=== PATIENT | male | born 1940 | race Caucasian/White ===

== ENCOUNTER → 2017-01-11 | Outpatient (CLI) | payer MEDICARE, OTHER ==
--- NOTE | 2017-01-11 17:28 | RAD ---
Procedure: XR PELVIS 1-2 VIEWS Exam Date: 01/11/2017 Ordering Provider: ESCOBAR RODRIGUEZ Clinical Indication: PELVIC PAIN Comparison: 02/16/2012 CT pelvis FINDINGS: Penile implant and prostate seeds. There is no fracture or dislocation. Articular surface of each hip is preserved. The sacroiliac joints are intact bilaterally. The pubic symphysis is normal. There are no lytic or sclerotic lesions. There are no suspicious calcifications. Pelvic phleboliths. Impression: 1. No acute findings. Electronically signed by: Theron Mcneil MD 01/11/2017 5:27 PM CDT
--- NOTE | 2017-01-11 18:39 | RAD ---
EXAM DESCRIPTION: Knee,Right Complete CLINICAL HISTORY: 76 years,Male,KNEE PAIN COMPARISON: None FINDINGS: The right knee demonstrates no fractures, dislocations, or other acute bony abnormalities. The joint spaces severe loss on the lateral compartments some widening lateral compartment and mild loss patellofemoral compartment with osteophyte changes in all three compartments worse moderate on the medial.. The soft tissues demonstrates scattered calcified arterial disease. No joint effusion. IMPRESSION: Tricompartmental arthritic changes right knee worse and severe in the medial compartment Electronically signed by: Maicol Churchill MD 01/11/2017 6:38 PM CDT
== END | disposition home or self-care (01) ==
LOC: RAD 08:44
PROVIDERS: ATTEND Orthopaedic Surgery
DX: M25.561 Pain in right knee (principal); M25.551 Pain in right hip

== ENCOUNTER → 2017-02-19 | Outpatient (CLI) | payer OTHER | END | disposition home or self-care (01) | LOC: RESP 08:36 | PROVIDERS: ATTEND Orthopaedic Surgery | DX: Z01.818 Encounter for other preprocedural examination (principal) ==

== ENCOUNTER 2017-03-02 05:57 | Inpatient (IN) | payer OTHER ==
--- NOTE | 2017-02-28 10:25 | HP ---
CHIEF COMPLAINT: Right knee pain. HISTORY OF PRESENT ILLNESS: Khris is a 76-year-old male with a history of pain in the right knee. He has had multiple interventions conservatively, however, has failed to gain relief. Because of his ongoing pain, he has requested operative intervention. He has had contralateral total knee replacement. After discussing the risks, benefits and alternatives to operative therapy, the patient has given informed consent. PAST SURGICAL HISTORY: 1. Left knee arthroscopy. 2. Left total knee replacement. MEDICATIONS: 1. Symbicort. ALLERGIES: NO KNOWN DRUG ALLERGIES. CODE STATUS: Full code. IMMUNIZATIONS: Up to date. SOCIAL HISTORY: The patient does not drink or use any illicit drugs. He does smoke. FAMILY HISTORY: None pertinent to today's complaint. REVIEW OF SYSTEMS: Negative except as indicated in the History of Present Illness. PHYSICAL EXAMINATION: VITAL SIGNS: Blood pressure 156/84. Pulse 94. Height 6'. Weight 185. MENTAL STATUS: The patient is awake, alert, and is able to give a good history and participate in the physical. The patient is oriented to person, place and time. SKIN: Normal tone and turgor. HEENT: Normocephalic, atraumatic. Pupils equal, round and reactive. Mucosal membranes are moist. NECK: Normal range of motion. No thyromegaly, no lymphadenopathy. CHEST: Normal respiratory excursion. CARDIAC: Regular rate and rhythm. No murmurs, rubs or gallops. MUSCULOSKELETAL: The bilateral upper extremities show full active range of motion. He has no pain with range of motion. He has no deformity and no crepitus. The left knee shows full extension with flexion to about 120 degrees. He has a well-healed wound anteriorly. He has no pain with range of motion. The hip shows full range of motion without any pain. The right side shows full range of motion of the hip. However, he has crepitus and pain throughout his range of motion in the knee. He has pain diffusely about the knee, but most prominent medially. He has a mild to moderate effusion. Sensation is intact. He does have full extension and flexion is to about 115 degrees. IMAGING: X-rays show severe arthritis. ASSESSMENT: 1. Arthritis. PLAN: The plan at this point is for total knee arthroplasty. We have discussed the risks, benefits, and alternatives to that and the patient has given informed consent. #[id number] [facility]
[~2017-03-02 05:57] MED LIST: LACTATED RINGERS 1,000 ML ONE; SODIUM CHL 0.9% 100ML MINI-BAG 100 ML IVPB ONE; SODIUM CHLORIDE 0.9% 100ML 100 ML IVPB ONE; SODIUM CHLORIDE 0.9% 250ML 250 ML ONE; TRANEXAMIC ACID 1,000 MG/10 ML VIAL ONE; VANCOMYCIN HCL INJ 1,000 MG VIAL IVPB ONE; ceFAZolin SODIUM 1 GM VIAL ONE
[2017-03-02] MEDS ORDERED: ACETAMINOPHEN IV 1000MG 100 ML ONE (06:14)
[2017-03-02] MEDS ORDERED: ELECTROLYTE-A 1,000 ML IVS ONE (06:14)
[2017-03-02] MEDS ORDERED: MIDAZOLAM INJ 5 MG/5 ML VIAL ONE (06:14)
[2017-03-02] MEDS ORDERED: MORPHINE SULF *EPIDURAL* 1 MG/ML VIAL ONE (06:14)
[2017-03-02] MEDS ORDERED: fentaNYL CITRATE INJ 50 MCG/ML AMP ONE (06:15)
[2017-03-02] MEDS ORDERED: ceFAZolin SODIUM 1 GM VIAL ONE ×2 (06:25→16:11)
[2017-03-02] MEDS ORDERED: raNITIdine HCL INJ 25 MG/ML VIAL ONE (07:00)
[2017-03-02] MEDS ORDERED: PROPOFOL 200 MG/20 ML VIAL IV ONE (07:00)
[2017-03-02] MEDS ORDERED: DEXAMETHASONE INJ 10 MG/ML VIAL ONE (07:00)
[2017-03-02] MEDS ORDERED: LIDOCAINE 1% 10 ML VIAL INJ ONE (07:00)
[2017-03-02] MEDS ORDERED: METOCLOPRAMIDE HCL INJ 10 MG/2 ML VIAL ONE (07:00)
[2017-03-02] MEDS ORDERED: ePHEDrine SULF 50 MG/ML ONE (07:00)
[2017-03-02] MEDS: ceFAZolin SODIUM 1 GM VIAL ONE ×2 (07:47→08:42)
[2017-03-02] MEDS: VANCOMYCIN HCL INJ 1,000 MG VIAL IVPB ONE ×2 (07:47→08:42)
[2017-03-02] MEDS: BUPIVACAINE 0.25% W/EPI 50 ML VIAL INJ ONE ×2 (07:48→09:16)
[2017-03-02] MEDS ORDERED: HYDROcodone 5MG/APAP 325MG 1 EA TAB PO PRN (09:27)
[2017-03-02] MEDS ORDERED: TEMAZEPAM 15 MG CAP PO PRN (09:27)
[2017-03-02] MEDS ORDERED: PROMETHAZINE HCL INJ 25 MG in SODIUM CHLORIDE 0.9% 50ML 50 ML IVPB PRN (09:27)
[2017-03-02] MEDS ORDERED: ZOLPIDEM TARTRATE 5 MG TAB PO PRN (09:27)
[2017-03-02] MEDS ORDERED: MORPHINE SULFATE INJ 10 MG/ML VIAL IV PRN (09:27)
[2017-03-02] MEDS ORDERED: ALUMINUM & MAGNESIUM HYDROXIDE 30 ML UD PO PRN (09:27)
[2017-03-02] MEDS ORDERED: ACETAMINOPHEN 500 MG TAB PO PRN (09:27)
[2017-03-02] MEDS ORDERED: MAGNESIUM HYDROXIDE 30 ML UD PO PRN (09:27)
[2017-03-02] MEDS ORDERED: SODIUM CHLORIDE 0.9% (FLUSH) 10 ML SYG IV PRN (09:27)
[2017-03-02] MEDS ORDERED: TRANEXAMIC ACID INJ 1,000 MG in SODIUM CHLORIDE 0.9% 100ML 100 ML IVPB ONE (09:27)
[2017-03-02] MEDS ORDERED: DEX 5% W/NACL 0.45% 1000ML 1,000 ML IVS PRN (09:27)
[2017-03-02] MEDS ORDERED: ACETAMINOPHEN 325 MG TAB PO PRN (09:27)
[2017-03-02] MEDS ORDERED: CYCLOBENZAPRINE HCL 10 MG TAB PO PRN (09:27)
[2017-03-02] MEDS ORDERED: MORPHINE SULFATE INJ 10 MG/ML VIAL IM PRN (09:27)
[2017-03-02] MEDS ORDERED: HYDROcodone 10MG/APAP 325MG 1 EA TAB PO PRN (09:27)
[2017-03-02] MEDS ORDERED: PROMETHAZINE HCL INJ 12.5 MG in SODIUM CHLORIDE 0.9% 50ML 50 ML IVPB PRN (09:27)
[2017-03-02] MEDS ORDERED: BENZOCAINE-MENTH LOZ (CEPACOL) 1 EA LOZ MT PRN (09:27)
[2017-03-02] MEDS ORDERED: BISACODYL SUPPOSITORY 10 MG PR PRN (09:27)
[2017-03-02] MEDS ORDERED: NALOXONE HCL INJ 0.4 MG/ML VIAL IV PRN (09:27)
[2017-03-02] MEDS ORDERED: MORPHINE PCA 1 MG/ML 100ML 1 BAG in PREMIX BAG 1 BAG IVPB SCH (09:30)
[2017-03-02] MEDS ORDERED: IV SET AND CAP CHANGE INJ INJ SCH (09:30)
[2017-03-02] MEDS ORDERED: MORPHINE PCA 1 MG/ML 100 ML BAG IVPB ONE (09:35)
[2017-03-02] MEDS ORDERED: IPRATROPIUM/ALBUTEROL 3 ML VIAL NEB ONE (10:02)
--- NOTE | 2017-03-02 11:17 | RAD ---
EXAM DESCRIPTION: Knee,Right 2 or More Views CLINICAL HISTORY: 76 years, Male, TKA COMPARISON: January 11, 2017 FINDINGS: Interval total knee arthroplasty. Alignment near-anatomic. Soft tissue changes consistent recent procedure. Arterial calcifications. IMPRESSION: Near anatomic alignment post total knee arthroplasty Electronically signed by: Wayne Salmon MD 03/02/2017 11:16 AM CDT
[2017-03-02] MEDS: ONDANSETRON INJ 4 MG/2 ML VIAL IV PRN ×2 (15:46→20:07)
[2017-03-02] MEDS ORDERED: SODIUM CHLORIDE 0.9% 100ML 100 ML IVPB ONE (16:11)
[2017-03-02] MEDS: ceFAZolin SODIUM 2 GM in SODIUM CHLORIDE 0.9% 100ML 100 ML IVPB SCH (16:30)
[2017-03-02] MEDS ORDERED: VANCOMYCIN HCL INJ 1,000 MG VIAL IVPB ONE (17:51)
[2017-03-02] MEDS ORDERED: SODIUM CHLORIDE 0.9% 250ML 250 ML ONE (17:51)
[2017-03-02] MEDS: VANCOMYCIN HCL INJ 1,000 MG in SODIUM CHLORIDE 0.9% 250ML 250 ML IVPB SCH (18:09)
[2017-03-02] MEDS ORDERED: BIMATOPROST 0.01% BOTH_EYES SCH (19:30)
[2017-03-02] MEDS ORDERED: DOCUSATE CALCIUM 240 MG CAP PO SCH (21:00)
[2017-03-02] MEDS ORDERED: DORZOLAMIDE 2% OPHTH SOL 1 DROP BOTH_EYES SCH (21:00)
[2017-03-02] MEDS: BRIMONIDINE 0.15% BOTH_EYES SCH (21:00)
[2017-03-02] MEDS: ENOXAPARIN SODIUM 30 MG/0.3 ML SYG SUBCU SCH (21:25)
[2017-03-02] MEDS: BUDESONIDE/FORMOTEROL 160/4.5 60 PUFF/6 GM INH INH SCH (21:49)
[2017-03-02] MEDS ORDERED: ALBUTEROL SULFATE 2.5 MG/3 ML VIAL NEB PRN (21:51)
[2017-03-03] MEDS ORDERED: SODIUM CHLORIDE 0.9% 100ML 100 ML IVPB ONE ×2 (00:20→08:17)
[2017-03-03] MEDS ORDERED: ceFAZolin SODIUM 1 GM VIAL ONE ×2 (00:20→08:17)
[2017-03-03] MEDS: ceFAZolin SODIUM 2 GM in SODIUM CHLORIDE 0.9% 100ML 100 ML IVPB SCH ×2 (00:40→08:39)
[2017-03-03] MEDS ORDERED: SODIUM CHLORIDE 0.9% 250ML 250 ML ONE (03:26)
[2017-03-03] MEDS ORDERED: VANCOMYCIN HCL INJ 1,000 MG VIAL IVPB ONE (03:26)
[2017-03-03] MEDS: VANCOMYCIN HCL INJ 1,000 MG in SODIUM CHLORIDE 0.9% 250ML 250 ML IVPB SCH (05:30)
[2017-03-03] MEDS ORDERED: ALBUTEROL SULFATE 2.5 MG/3 ML VIAL NEB SCH (08:00)
[2017-03-03] MEDS: BUDESONIDE/FORMOTEROL 160/4.5 60 PUFF/6 GM INH INH SCH (08:24)
[2017-03-03] MEDS: ENOXAPARIN SODIUM 30 MG/0.3 ML SYG SUBCU SCH (08:44)
[2017-03-03] MEDS: BRIMONIDINE 0.15% BOTH_EYES SCH (08:45)
[2017-03-03] MEDS ORDERED: MAGNESIUM OXIDE 400 MG TAB PO SCH (09:00)
[2017-03-03] MEDS ORDERED: DORZOLAMIDE 2% OPHTH SOL 1 DROP BOTH_EYES SCH (09:00)
[2017-03-03] MEDS ORDERED: amLODIPine BESYLATE 5 MG TAB PO SCH (09:00)
[2017-03-03] MEDS ORDERED: BIMATOPROST 0.01% RIGHT_EYE SCH (09:00)
--- NOTE | 2017-03-03 09:36 | CONS ---
SUPERVISING PHYSICIAN: Johnathan Yan MD DATE: 03/02/17 CHIEF COMPLAINT: Right knee pain. HISTORY OF PRESENT ILLNESS: This is a 76 year-old male patient who has a history of bilateral knee pain. He had his left knee replaced last year and after failing to gain relief with conservative measures and due to ongoing pain he has requested Dr. Burgos, orthopedic surgeon to replace his right knee. Intraoperatively, he did well without any complications. I am seeing him in the postoperative phase after his right total knee replacement. PAST MEDICAL HISTORY: 1. Chronic obstructive pulmonary disease. 2. Hypertension. 3. Gastroesophageal reflux disease. 4. Glaucoma. PAST SURGICAL HISTORY: 1. Left knee arthroscopy. 2. Left total knee replacement. OUTPATIENT MEDICATIONS: 1. Aspirin. 2. Hydrocodone. 3. Pantoprazole. 4. Amlodipine. 5. Lumigan ophthalmic solution. 6. Alphagan T ophthalmic solution. 7. Symbicort. 8. Trusopt ophthalmic drops CODE STATUS: FULL CODE. ALLERGIES: NO KNOWN DRUG ALLERGIES. FAMILY HISTORY: Noncontributory. SOCIAL HISTORY: The patient smokes one-half pack of cigarettes daily. He denies any ETOH or illicit drug use. REVIEW OF SYSTEMS: Negative except as per history of present illness plus he is slightly nauseated postoperatively. PHYSICAL EXAMINATION: VITAL SIGNS: He is afebrile. Heart rate 83, blood pressure 120/66, respiratory rate 14. 02 saturation 91%. GENERAL: This is a 76 year-old male patient who is lying in his hospital bed. He is in no acute distress. HEENT: Normocephalic and atraumatic. Pupils are equal and reactive. Oropharynx is clear. NECK: Supple without mass. There is no jugular venous distention. CHEST: Clear to auscultation bilaterally. Chest has equal rise and fall of the chest with inspiration and expiration. HEART: Regular rate and rhythm. ABDOMEN: Soft, non-tender, nondistended. Bowel sounds are positive. EXTREMITIES: Bilateral pedal pulses are palpable at +2. He has a dressing to his right knee that is dry and intact. He also has an Iceman in place. NEUROLOGIC: He is awake, alert, and oriented x3. LABORATORY: There are no labs to report at this time. The knee x-ray per radiology interpretation shows near anatomic alignment post total knee arthroplasty. All other labs and films have been reviewed via the EMR. IMPRESSION: 1. Osteoarthritis of the right knee status post right total knee arthroplasty, postoperative day #0. 2. Chronic obstructive pulmonary disease. 3. Hypertension. 4. Gastroesophageal reflux disease. 5. Glaucoma. PLAN: We will restart patient's home medications. I will also start breathing treatments. He will use his own glaucoma eyedrops. He will start physical therapy tomorrow for strengthening and conditioning. I have encouraged good pulmonary hygiene. I have also instructed him to call for any nausea problems as he has p.r.n. medications available. We will continue to monitor patient closely and followup as needed. Dr. Yan is the collaborating physician available for consultation. #[id number] [facility]ITAL[facility]fredo
[2017-03-03 15:29] VITALS: BP 134/69; TEMP 98.6; O2SAT 95
[2017-03-04] MEDS ORDERED: SODIUM CHLORIDE 0.9% (FLUSH) 10 ML SYG IV SCH (09:00)
--- NOTE | 2017-03-04 13:51 | OP ---
PREOPERATIVE DIAGNOSIS: 1. Osteoarthritis of the right knee. POSTOPERATIVE DIAGNOSIS: 2. Osteoarthritis of the right knee. PROCEDURE: Total right knee arthroplasty. SURGEON: Jairo Burgos MD MANAGER OF FINANCIAL: Wilfrido Ahumada CST, SA-C ANESTHESIA: General. COMPLICATIONS: None. FINDINGS: Severe arthritis of the knee. INDICATIONS FOR PROCEDURE: Mr. Gannon has a long history of severe knee getting progressively worse and has been refractory to conservative measures. Because of the ongoing knee pain and the refractory nature of it, he has requested operative intervention. After discussing the risks, benefits, and alternatives to operative intervention , he was given informed consent for that. PROCEDURE: The patient was brought to the Operating Room and placed in supine position. General anesthesia was induced and the patient's leg was sterilely prepped and draped. Following prepping and draping, the distal femur was exposed and using an intramedullary guide, the distal femoral cut was made. The appropriate sized cutting block was measured, pinned into place, and the anterior, posterior , and chamfer cuts were made. The ACL was transected and the tibia was subluxed. Both the medial and lateral menisci were removed. An intramedullary guide was used to make the proximal tibial cut. The appropriate sized base plate was placed and a trial polyethylene was placed. The trial femur was placed, the knee was reduced, and the knee was taken through a range of motion. The knee was stable in anterior, posterior, varus and valgus stress. The patella tracked anatomically without evidence of subluxation or dislocation. After trialing, the trial components were removed and the bony surfaces were thoroughly irrigated with saline. Following irrigation, the surfaces were dried and the final components were cemented into place. The excess cement was removed and the remaining cement was allowed to cure. The knee was again taken through a range of motion to confirm stability. The wound was then irrigated with saline and closure was performed using PDS to approximate the arthrotomy followed by closure of the subcutaneous tissues with a combination of running and interrupted Monocryl sutures. Sterile dressing was placed. The patient was awoken from anesthesia and taken to Recovery. POSTOPERATIVE INSTRUCTIONS: The patient will be weightbearing as tolerated on postoperative day #1. COMPONENTS: .[employer] Triathlon knee, size 4 femur, size 4 tibia and 9 mm insert. #[id number] [facility]
[2017-03-05] MEDS ORDERED: BISACODYL SUPPOSITORY 10 MG PR ONE (21:00)
[2017-03-05] MEDS ORDERED: MAGNESIUM HYDROXIDE 30 ML UD PO ONE (21:00)
--- NOTE | 2017-03-10 17:47 | DS ---
SUPERVISING PHYSICIAN: Johnathan Yan MD DISCHARGE DIAGNOSIS: 1. Osteoarthritis of the right knee status post right total knee arthroplasty, postoperative day #1, having failed to respond to outpatient treatment plans requiring surgical intervention for symptomatology and control. 2. Chronic obstructive pulmonary disease, stable. 3. Hypertension, stable. 4. Gastroesophageal reflux disease. 5. History of glaucoma. HISTORY OF PRESENT ILLNESS: Mr. Gannon is a 76 year-old male patient with a history of bilateral knee pain. He had his left knee replaced last year and after failing to get any relief with conservative measures and having ongoing pain, he requested Dr. Burgos, orthopedic surgeon, replace his right knee. Intraoperatively he did well without any complications and he was seen immediate in the postoperative phase and followed the entire admission. He was admitted to the medical/surgical floor in stable condition. LABORATORY: Postoperative hemoglobin and hematocrit were 12.1 and 38.1. He had a BNP on 02/28/17 showing to be within normal limits. RADIOLOGY: No additional radiographic studies were submitted. HOSPITAL COURSE: The patient was admitted on 03/02 as noted in the history of present illness for elective total right knee arthroplasty. The patient did well surgically and was seen in the postoperative phase and followed medically through his rehab phase. On the morning it was felt he was clinically stable enough and had done well enough that he could be discharged to followup with Dr. Burgos the following Sunday and to start rehabilitation in the outpatient setting. PLAN: Mr. Gannon was discharged on 03/03/17 with instructions to have close clinical followup with Dr. Burgos on 03/05/17 at 7:45. [facility] to talk to [facility] and schedule outpatient rehabilitation physical therapy. He was to resume his home medications as directed, take new prescriptions as instructed. He was to return to the hospital if his condition failed to improve or he had any concerning symptoms. Discharge prescriptions include: 1. Flexeril 10 mg every 8 hours as needed, #10. 2. Xarelto 10 mg every day, #11. 3. Tramadol 50 mg every 8 hours #[address] Burgos prescription. DISCHARGE DIET: Regular diet as tolerated. ACTIVITIES: As per physical therapy. No weight bearing, to walk with a walker. Wound care as per Dr. burgos's instructions. CONDITION ON DISCHARGE: Stable and improved. #[id number] [facility]
== END 2017-03-03 16:20 | disposition home or self-care (01) | DRG 470 ==
LOC: AMB 05:57 → MS 10:30
PROVIDERS: ADMIT Orthopaedic Surgery; ATTEND Nurse Practitioner Family
PROC: 0SRC0J9 Replacement of Right Knee Joint with Synthetic Substitute, Cemented, Open Approach (ICD-10-PCS; principal; 2017-03-02 07:09)
DX: M17.11 Unilateral primary osteoarthritis, right knee (principal); I10 Essential (primary) hypertension; K21.9 Gastro-esophageal reflux disease without esophagitis; H40.9 Unspecified glaucoma; J44.9 Chronic obstructive pulmonary disease, unspecified; F17.210 Nicotine dependence, cigarettes, uncomplicated; Z96.652 Presence of left artificial knee joint; Z79.82 Long term (current) use of aspirin; Z79.51 Long term (current) use of inhaled steroids; Z79.899 Other long term (current) drug therapy

== ENCOUNTER → 2017-12-11 | Outpatient (CLI) | payer MEDICARE, OTHER | LOC: LAB.O 09:22 | PROVIDERS: ATTEND Nurse Practitioner Family | DX: I10 Essential (primary) hypertension (principal); Z13.220 Encounter for screening for lipoid disorders ==

== ENCOUNTER → 2017-12-12 | Outpatient (CLI) | payer OTHER ==
--- NOTE | 2017-12-12 11:32 | RAD ---
EXAM DESCRIPTION: Chest,2 Views CLINICAL HISTORY: COPD COMPARISON: Chest radiograph dated November 16, 2011 Findings/impression: Frontal and lateral views of the chest. Cardiac silhouette and pulmonary vascularity are within normal limits. Lung volumes are hyperinflated, compatible with COPD. Minimal linear opacities in the bilateral lung bases most likely represent subsegmental atelectasis. Otherwise, lungs are clear without focal consolidative infiltrates. No pleural effusion. No pneumothorax. Degenerative changes of the thoracic spine. Electronically signed by: Maicol Alcaraz MD 12/12/2017 11:31 AM CDT
== END ==
LOC: RAD 10:11
PROVIDERS: ATTEND Nurse Practitioner Family
DX: J44.9 Chronic obstructive pulmonary disease, unspecified (principal); I10 Essential (primary) hypertension

== ENCOUNTER → 2018-05-06 | Outpatient (CLI) | payer OTHER ==
--- NOTE | 2018-05-06 09:37 | RAD ---
EXAM DESCRIPTION: Chest,2 Views CLINICAL HISTORY: CHRONIC OBSTRUCTIVE PULMONARY DISEASE COMPARISON: Previous study December 12, 2017 TECHNIQUE: PA/lateral FINDINGS: There is no acute appearing cardiac or pulmonary abnormality. Heart size is normal with normal pulmonary vascularity. No pleural effusion or pneumothorax. Patchy discoid atelectasis in the lung bases appear similar to previous study. Lungs are otherwise clear with no consolidating infiltrate. Lateral view shows intact sternum and spurring in the T-spine. IMPRESSION: No acute process is identified in the chest. Electronically signed by: Griffin Hahn MD 05/06/2018 9:35 AM CDT
== END ==
LOC: YCFC.O 08:44
PROVIDERS: ATTEND Nurse Practitioner Family
DX: I10 Essential (primary) hypertension (principal); J44.9 Chronic obstructive pulmonary disease, unspecified; Z01.818 Encounter for other preprocedural examination

== ENCOUNTER → 2018-10-17 | Outpatient (CLI) | payer OTHER ==
--- NOTE | 2018-10-17 10:24 | RAD ---
EXAM DESCRIPTION: Chest,2 Views CLINICAL HISTORY: PRE OP FOR EYE SX COMPARISON: May 06, 2018 TECHNIQUE: PA/lateral FINDINGS: The lungs are well expanded and clear. No infiltrates or effusions or masses are noted. The heart is normal in size and shape with no evidence of vascular congestion. The mel and mediastinum demonstrate normal contours. The bony spine and chest wall is normal for age in appearance. IMPRESSION: Normal chest, two views Electronically signed by: Michael Rosario MD 10/17/2018 10:22 AM [facility]
== END ==
LOC: LAB.O 09:02
PROVIDERS: ATTEND Nurse Practitioner Family
DX: Z01.818 Encounter for other preprocedural examination (principal)

== ENCOUNTER → 2019-01-16 | Outpatient (CLI) | payer OTHER ==
--- NOTE | 2019-01-17 07:31 | RAD ---
EXAM: Hip,Left 2 Views CLINICAL HISTORY: HIP PAIN COMPARISON STUDY: None. TECHNICAL: AP and lateral images. FINDINGS: There is a slight irregularity along the femoral neck superolaterally. There are mild osteophytic changes along the superolateral acetabulum. There is no fracture dislocation. There is no joint space loss. CONCLUSIONS: 1. 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 2. NO ACUTE FRACTURE. Electronically signed by: Adrian Chavez MD 01/17/2019 7:29 AM CDT
== END ==
LOC: RAD 08:45
PROVIDERS: ATTEND Nurse Practitioner Family
DX: M25.552 Pain in left hip (principal)

== ENCOUNTER → 2019-03-21 | Outpatient (CLI) | payer OTHER ==
--- NOTE | 2019-03-23 18:06 | CT ---
EXAM DESCRIPTION: Chest w/o Contrast : Computed Tomography. CLINICAL HISTORY: 78 years Male Hypoxemia COMPARISON: 2 view chest x-ray 10/17/2018. CT scan abdomen and pelvis 05/29/2011. TECHNIQUE: Spiral-axial scans at 5 mm intervals through the lungs and thorax without IV contrast. 2.5 x 5 mm lung algorithm axial reconstructions. Coronal and sagittal 2.0 Mm reconstructions. No adverse reactions. Total Exam DLP: 446.87 mGy-cm. This exam was performed according to our departmental dose-optimization program which includes automated exposure control, adjustment of the mA and/or kV according to patient size and/or use of iterative reconstruction technique; to reduce radiation dose to as low as reasonably achievable (ALARA). Nodule measurements under 10 mm are given as mean value of 3 axes diameters. FINDINGS: Lungs and large airways: Tree-in-bud and ground-glass densities are noted abutting the medial pleura, posterior to the inferior hilum in the superior segment right lower lobe. 5 mm solid nodule in the junction of the superior segment and medial basilar segments of the left lower lobe on axial series 4, image 81 and 82. Its shape is suggestive of a perifissural nodule. Solid nodule in the lateral recess of the left lower lobe abutting the medial pleura and extension to the lateral pleural is stable in size compared to prior CT scan dated focal infiltrate or atelectasis in the posterior recess and base of the left lower lobe is new since the prior study. Nodular-like, solid component of this process on image 4/107 has a mean diameter of 8 mm. A mixture of groundglass and tree-in-bud densities diffusely in the medial base of the right lower lobe new since the prior study. Largest groundglass component is unremarkable by 10 mm on image 4/106. Dilated airspaces in the upper lung prasad more prevalent in mid and inferior lung prasad.. Pleural spaces: Bilateral occasional focal thickening but no effusion or pneumothorax. Mediastinum and Kristi: Evaluation limited due to lack of IV contrast. No enlarged nodes or soft tissue masses. Great vessels and Heart: Evaluation limited due to lack of IV contrast.. Atherosclerotic calcifications in the coronary arteries, aortic arch and descending thoracic aorta, and some of the included brachiocephalic vessels. Soft tissues of neck base, axillae, and chest wall: Evaluation limited due to lack of IV contrast... Normal size nodes. No soft tissue masses or edema. Upper abdomen: Included peritoneal space bases negative. Normal density and size of the spleen and adrenal glands. Included abdominal organs grossly normal. Moderate atherosclerotic changes in the distal thoracic aorta and proximal abdominal aorta and major branch vessels. Osseous structures: Spondylosis at multiple levels. Arthrosis bilateral sternoclavicular joints and soft tissue swelling. Sclerotic lesion in the inferior T5 endplate. No lytic lesions. Mild arthrosis in the bilateral glenohumeral joints. Also the first costovertebral joints. IMPRESSION: 1. Bibasilar densities with groundglass and solid components in the posterior recesses of the lower lobes are not present on the prior CT scans through the lung bases on the CT abdomen scan. Nodule in the lateral recess of the left lower lobe abutting the medial pleura stable. A 5 mm solid nodule which may be associated with a intersegmental fissure is visible at the junction of the superior segment of the left lower lobe and medial basilar segment. There is also a mixture of groundglass densities and tree-in-bud densities abutting the medial pleura of the superior segment of the right lower lobe. A tree-in-bud pattern can be seen in chronic bilateral pneumonias and also mycobacterial infection. [employer] Best Practice recommendations utilizing 2017 Fleischner Society guidelines for multiple pulmonary nodules recommends 3-[address] follow-up. Please see below. 2. No pleural effusion or pneumothorax. No soft tissue chest wall masses and no enlarged nodes are soft tissue masses in the mediastinum or hilum. 3. Small round sclerotic lesion inferior T5 vertebral body may be related to spondylosis. Recommend correlation with thoracic radiographs. Arthrosis also elsewhere in the thorax. Electronically signed by: Wilfrido Hebert MD 03/23/2019 6:04 PM CDT
== END ==
LOC: RESP 12:46
PROVIDERS: ATTEND Nurse Practitioner Family
DX: R91.8 Other nonspecific abnormal finding of lung field (principal); R91.1 Solitary pulmonary nodule; M51.84 Other intervertebral disc disorders, thoracic region; M47.894 Other spondylosis, thoracic region; R29.6 Repeated falls

== ENCOUNTER → 2019-04-10 | Outpatient (CLI) | payer OTHER ==
--- NOTE | 2019-04-10 11:14 | RAD ---
EXAM DESCRIPTION: Foot,Left 3 Views CLINICAL HISTORY: M79.672 COMPARISON: None. TECHNIQUE: 3 views left FINDINGS: Diffuse osteopenia is observed. Plantar and Achilles enthesophytes are observed. No fracture is detected. IMPRESSION: Degenerative changes and osteopenia are observed. No fracturing is detected. Electronically signed by: Maicol Noyola MD 04/10/2019 11:11 AM CDT
== END ==
LOC: RAD 09:44
PROVIDERS: ATTEND Orthopaedic Surgery
DX: M19.072 Primary osteoarthritis, left ankle and foot (principal)

== ENCOUNTER 2019-06-03 02:32 | Emergency (ER) | payer OTHER ==
[2019-06-03] MEDS ORDERED: ONDANSETRON INJ 4 MG/2 ML VIAL IV ONE (02:46)
[2019-06-03] MEDS ORDERED: SODIUM CHLORIDE 0.9% (FLUSH) 10 ML SYG IV PRN (02:46)
[2019-06-03] MEDS ORDERED: ASPIRIN TABLET 325 MG TAB PO ONE (02:46)
--- NOTE | 2019-06-03 02:55 | ED.PDOC ---
History of Present Illness - General Source: patient Additional Information: patient is a 79-year-old gentleman who presents to the ED with chest pain and dizziness onset this evening. Patient indicates that he has chronic hip and back pain which had kept him up tonight and then he began to experience central chest pain that lasted only for a few minutes and went away associated with dizziness. Pain was a pressure tightness described as moderate in intensity, it is relieved presentlypatient denies any adverse cardiac history. He is not dizzy any longer and indicates his dizziness went away when his chest pain went away. Patient indicates he is completely comfortable and asymptomatic at this time. <Thomas Yan - Last Filed: 06/03/19 07:07> <Jaime Jay - Last Filed: 06/03/19 09:00> - General Chief Complaint: Chest Pain/UT Stated Complaint: dizzy, chest pain Time Seen by Provider: 06/03/19 02:45 - History of Present Illness Allergies/Adverse Reactions: Allergies NO KNOWN ALLERGY Allergy (Verified 08/12/15 10:53) Home Medications: Ambulatory Orders RX: Budes/Formoterol INH 160/4.5 [Symbicort Inhaler 160/4.5] 2 puff INH BID 12/23/15 RX: amLODIPine BESYLATE [Norvasc] 10 mg PO DAILY 12/23/15 RX: HYDROcodone 5MG/APAP 325MG [[place] 5/325] 1 ea PO .Q4-6H PRN #90 tab 12/30/15 RX: Aspirin 325 mg PO QD 02/28/17 RX: Bimatoprost 0.01% Ophth [Lumigan Ophth Suyapa] 2.5 ml OPHTH DAILY 02/28/17 RX: Brimonidine 0.15% Ophth [Alphagan P] 1 drop BOTH_EYES BID 02/28/17 RX: Dorzolamide 2% Ophth [Trusopt Opthalmic Drops] 10 ml OPHTH BID 02/28/17 RX: Pantoprazole Sodium 40 mg PO BEDTIME 02/28/17 RX: Cyclobenzaprine HCl [Flexeril] 10 mg PO Q8H PRN #10 03/03/17 RX: Tramadol HCl 50 mg PO Q8H #50 tab 03/03/17 Rivaroxaban [Xarelto] 10 mg PO QD #11 tab 03/03/17 Review of Systems - Review of Systems Constitutional: States: no symptoms reported. Denies: diaphoresis, fever, weakness EENTM: States: no symptoms reported Respiratory: States: no symptoms reported. Denies: cough, orthopnea, short of breath, stridor Cardiology: States: see HPI Gastrointestinal/Abdominal: States: no symptoms reported. Denies: nausea, vomiting Genitourinary: States: no symptoms reported Musculoskeletal: States: no symptoms reported Skin: States: no symptoms reported Neurological: Denies: emotional problems, headache, numbness, paresthesia Endocrine: States: no symptoms reported Hematologic/Lymphatic: States: no symptoms reported <Thomas Yan - Last Filed: 06/03/19 07:07> Past Medical History (General) - Patient Medical History Hx of COPD: Yes Hx Cardiac Disorders: Yes Hx Congestive Heart Failure: No Hx Pacemaker: No Hx Hypertension: Yes Hx Diabetes: No Hx MRSA: No - Social History Hx Alcohol Use: No Hx Substance Use: No Hx Physical Abuse: No <Thomas Yan - Last Filed: 06/03/19 07:07> Family Medical History - Family History Father Family History: Unknown <Thomas Yan - Last Filed: 06/03/19 07:07> Physical Exam - Physical Exam General Appearance: Alert, Comfortable, No apparent distress Eyes, Ears, Nose, Throat Exam: normal ENT inspection, pharynx normal Neck: non-tender, full range of motion, supple, normal inspection Respiratory: chest non-tender, lungs clear, normal breath sounds, no respiratory distress Cardiovascular/Chest: regular rate, rhythm, no edema, no gallop Gastrointestinal/Abdominal: normal bowel sounds, non tender, soft Extremity: normal range of motion, non-tender, normal inspection Neurologic: disability aide II-XII nml as tested <Thomas Yan - Last Filed: 06/03/19 07:07> - Physical Exam General Appearance: Comfortable <Jaime Jay - Last Filed: 06/03/19 09:00> Progress - Progress Progress: 06/03/19 03:05 DDx: ACS, chest wall pain, pneumonia, near-syncope 06/03/19 07:07 patient remainsfree in the ED and feeling well. He is completely asymptomatic. Patient's EKG is unremarkable and his serial troponins are negative. He has no history of ACS or heart disease and despite his age he is a low risk chest pain patient. Patient offered transfer to [facility] for cardiology evaluation and continued care but patient declines saying that he will follow up as an outpatient within the next 2 days with a computer drafter.Vital signs stable, patient NAD and looks clinically well and is safe for discharge with outpatient follow-up. Follow-up instructions, discharge instructions and return to ED precautions discussed with patient, Patient voices understanding and willingness to comply with instructions. All laboratory and radiographic re sults have been discussed with the patient, and all questions answered.. Patient happy with plan. <Thomas Yan - Last Filed: 06/03/19 07:07> Departure <Thomas Yan - Last Filed: 06/03/19 07:07> - Departure Time of Disposition: 06:45 Comments: Chart was reviewed with Dr. Yan for training. Per EMR, there was a request for myself to sign as a provider, however I did not provide care to this patient. - Jaime Jay D.O. <Jaime Jay - Last Filed: 06/03/19 09:00> - Departure Clinical Impression: Chest pain, Dizziness Disposition: Discharge to Home or Self Care Condition: Fair Departure Forms: ED Discharge - Pt. Copy, Patient Portal Self Enrollment Instructions: DI for Chest Pain Referrals: Margaux Johansen NP [Primary Care Provider] - 1-2 Weeks KEYSHA NEIL MD [Consulting Staff] - 1-2 Days Home Medications: Ambulatory Orders RX: Budes/Formoterol INH 160/4.5 [Symbicort Inhaler 160/4.5] 2 puff INH BID 12/23/15 RX: amLODIPine BESYLATE [Norvasc] 10 mg PO DAILY 12/23/15 RX: HYDROcodone 5MG/APAP 325MG [[place] 5/325] 1 ea PO .Q4-6H PRN #90 tab 12/30/15 RX: Aspirin 325 mg PO QD 02/28/17 RX: Bimatoprost 0.01% Ophth [Lumigan Ophth Suyapa] 2.5 ml OPHTH DAILY 02/28/17 RX: Brimonidine 0.15% Ophth [Alphagan P] 1 drop BOTH_EYES BID 02/28/17 RX: Dorzolamide 2% Ophth [Trusopt Opthalmic Drops] 10 ml OPHTH BID 02/28/17 RX: Pantoprazole Sodium 40 mg PO BEDTIME 02/28/17 RX: Cyclobenzaprine HCl [Flexeril] 10 mg PO Q8H PRN #10 03/03/17 RX: Tramadol HCl 50 mg PO Q8H #50 tab 03/03/17 Rivaroxaban [Xarelto] 10 mg PO QD #11 tab 03/03/17
[2019-06-03 02:56] VITALS: TEMP 98.4
--- NOTE | 2019-06-03 03:08 | RAD ---
CLINICAL HISTORY: CP COMPARISON: October 17, 2018. TECHNIQUE: XR CHEST 1 VIEW 06/03/2019 2:46 AM CDT FINDINGS: Cardiac silhouette is normal in size. Lungs are clear without consolidation, atelectasis, mass or edema. There is no pleural effusion. There is no pneumothorax. There are no acute osseous findings. IMPRESSION: Clear lungs. Electronically signed by: Anup Mustafa MD 06/03/2019 3:07 AM CDT
[2019-06-03 07:16] VITALS: O2SAT 93
[2019-06-03 07:17] VITALS: BP 122/69
== END 2019-06-03 07:25 | disposition home or self-care (01) ==
LOC: ER 02:32
DX: R07.9 Chest pain, unspecified (principal); R42 Dizziness and giddiness; J44.9 Chronic obstructive pulmonary disease, unspecified; I51.9 Heart disease, unspecified; I10 Essential (primary) hypertension; Z79.899 Other long term (current) drug therapy; Z79.82 Long term (current) use of aspirin
CPT/HCPCS: 36415; 71045; 80048; 80053; 81001; 84484; 85025; 93005; J2405

== ENCOUNTER → 2019-07-21 | Outpatient (CLI) | payer OTHER ==
--- NOTE | 2019-07-21 16:41 | MRI ---
EXAM DESCRIPTION: Lumbar Spine w/o Contrast : Magnetic Resonance Imaging. 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 TECHNIQUE: Multiplanar, multiple standard sequences, non contrast MRI, lumbar spine. FINDINGS: L5-S1: The disc is well visualized on axial T2 series 501, image 3. Desiccated disc and loss of disc space with posterior broad-based bulge. Abutting the bilateral descending S1 nerves in the bilateral subarticular recesses. Minimal hypertrophy of the posterior ligaments. AP canal diameter 12 mm. Unchanged. Left facet hypertrophic arthrosis. Left foraminal stenosis; this has progressed since the prior study. Moderate right foraminal narrowing stable. L4- L5: Disc desiccation and minimal disc space loss. Small posterior broad-based bulge with endplate spurs more to the left of midline. Minimal effacement of the left subarticular recess. Bilateral hypertrophic facet arthrosis and ligament thickening more on the right. AP canal diameter 12 mm stable since the prior study. Disc osteophyte bulge into the foramina bilaterally with mild to moderate narrowing on the right and moderate to severe narrowing on the left. Stable since the prior study. L3-L4: Disc desiccation and minimal posterior bulge. Hypertrophic facet arthrosis and thickening of the ligaments more on the right. AP canal diameter 10 mm. Anterior endplate reactive changes. Mild narrowing of the right foramen and mild to moderate narrowing of the left foramen. Stable since the prior study. L2-L3: Disc desiccation and minimal disc space loss. Anterior disc bulge and endplate reactive changes. Posterior disc osteophyte bulge and endplate reactive changes. Bilateral hypertrophic facet arthrosis and ligament thickening. AP canal diameter 9 mm. Mild left foraminal narrowing. No change from the prior study. L1-L2: Disc desiccation with disc space preserved. Anterior endplate changes and disc bulge. Posterior mild hypertrophic facet arthrosis and ligament thickening. AP canal diameter 12 mm. Bilateral foramina are patent. Stable since the prior study. T12-L1: Conus terminates below the disc space. Schmorl's node in the inferior endplate. Minimal disc desiccation and trace bulging. Canal and foramina are patent. Posterior elements unremarkable. No change from the prior study. No scoliosis. Paravertebral soft tissues paraspinal muscle atrophy.. Distal cord normal signal and caliber. Otherwise normal marrow signal in the remaining vertebral bodies and the posterior elements. Vertebral bodies are not compressed at any level. IMPRESSION: 1. Multiple levels of canal narrowing and 2 levels of canal stenosis. Bilaterally shortened pedicles are also present in most levels. Hypertrophic facet arthrosis and thickening of the ligaments at multiple levels. 2. Borderline mild central canal stenosis L3-L4. Moderate narrowing of the left foramen. Stable since the prior study. 3. Moderate canal narrowing at L5-S1 with posterior disc bulge narrowing the subarticular recesses. Left foraminal stenosis is progressed since the prior study. Correlate for compromise of the left L5 nerve. 4. Bulging disc and hypertrophic posterior element changes at L2-L3 resulting in mild central canal stenosis, stable since the prior study. Electronically signed by: Wilfrido Hebert MD 07/21/2019 4:39 PM CDT
== END ==
LOC: MRI 10:56
PROVIDERS: ATTEND Psychiatry & Neurology Neurology
DX: M51.16 Intervertebral disc disorders with radiculopathy, lumbar region (principal); M48.061 Spinal stenosis, lumbar region without neurogenic claudication; M46.96 Unspecified inflammatory spondylopathy, lumbar region

== ENCOUNTER → 2019-12-11 | Outpatient (CLI) | payer MEDICARE | DX: M15.9 Polyosteoarthritis, unspecified (principal); R94.8 Abnormal results of function studies of other organs and systems ==

== ENCOUNTER → 2020-01-21 | Outpatient (CLI) | payer MEDICARE ==
--- NOTE | 2020-01-21 10:52 | CT ---
EXAM DESCRIPTION: Abdomen/Pelvis w/wo Contrast CLINICAL HISTORY: 79 years Male, ABNORMAL FINDING ON EVALUATION PROCEDURE COMPARISON: None available. TECHNIQUE: Contiguous 3 mm axial images were obtained from the lung bases to the level of the proximal femora before and after the administration of intravenous and oral contrast. Sagittal and coronal reconstructions were reviewed. FINDINGS: THORAX: The imaged lower thorax demonstrates no gross abnormality. LIVER: The liver demonstrates normal size and density with no intrahepatic biliary ductal dilatation or focal masses. GALLBLADDER: Few gallstones are noted. PANCREAS: Appears normal with no cystic or solid lesions. SPLEEN: Normal ADRENAL GLANDS: Normal with no nodules or masses. KIDNEYS: 1.6 cm calculus is noted in the right renal pelvis/ureteropelvic junction with mild upstream dilatation of the calyces. Mild hydroureteronephrosis of the left kidney with no definite obstructive calculus. Findings could represent sequelae of recent passage of a stone versus infection. STOMACH: Mild reflux esophagitis. The stomach is not well-distended limiting detailed evaluation. SMALL BOWEL: The small bowel loops demonstrate variable degrees of distention with no abnormal dilatation or other signs to suggest bowel obstruction. LARGE BOWEL: Multiple diverticuli are noted throughout the visualized colon, with no acute inflammation. Constipation. The appendix is not definitively visualized. No evidence of free intraperitoneal air or fluid. RETROPERITONEUM: The abdominal aorta is nonaneurysmal with moderate to severe atherosclerosis. The inferior vena cava is normal in size and caliber. 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 A few left external iliac lymph nodes measuring up to 1.3 cm. These are nonspecific in etiology. URINARY BLADDER: Not well distended with significant inflammatory stranding probably representing cystitis. Brachytherapy beads are noted in the prostate gland. ADDITIONAL FINDINGS: None. BONES: Moderate degenerative changes are identified in the visualized bones. Multiple sclerotic foci are identified throughout the visualized spine, concerning for metastasis. IMPRESSION: 1. Brachytherapy beads are identified in the prostate gland. Few prominent lymph nodes measuring up to 1.3 cm are noted in the left external iliac region. These are concerning for metastasis. 2. Multiple sclerotic foci throughout the visualized spine also represent metastasis. 3. 1.6 cm calculus is noted in the right renal pelvis/ureteropelvic junction with mild upstream dilatation of the calyces. Mild hydroureteronephrosis of the left kidney with no definite obstructive calculus. Findings could represent sequelae of recent passage of a stone versus infection. 4. Poorly distended urinary bladder with significant inflammatory stranding could represent cystitis of infectious etiology. Radiation cystitis is another differential consideration. 5. Cholelithiasis. This exam was performed according to our departmental dose-optimization program, which includes automated exposure control, adjustment of the mA and/or kV according to patient size and/or use of iterative reconstruction technique. Electronically signed by: Ayanna Toledo MD 01/21/2020 10:51 AM CDT
== END ==
LOC: CT 08:50
PROVIDERS: ATTEND Family Medicine
DX: R59.9 Enlarged lymph nodes, unspecified (principal); M53.9 Dorsopathy, unspecified; I10 Essential (primary) hypertension; N20.0 Calculus of kidney; N28.89 Other specified disorders of kidney and ureter; N13.30 Unspecified hydronephrosis; N32.9 Bladder disorder, unspecified; K80.20 Calculus of gallbladder without cholecystitis without obstruction; Z92.3 Personal history of irradiation